=== PATIENT | male | born 1930 | race Caucasian/White ===

== ENCOUNTER 2017-09-12 13:51 | Emergency (ER) | payer OTHER ==
[~2017-09-12] VITALS: Ht 162.6 cm; Wt 54.6 kg
[2017-09-12 15:05] LABS: HEMATOCRIT 44.5 % (38.0-50.0); HEMOGLOBIN 14.8 G/DL (12.5-16.6); MCH 32.2 PG (29.0-34.0); MCHC 33.3 G/DL (30.0-36.0); MCV 96.9 FL (86-99); PLATELET COUNT 130 K/uL (156-360); RBC DIS.WIDTH-CV 14.9 % (11.8-14.6); RBC DIS.WIDTH-SD 52.8 % (39-53); RED BLOOD COUNT 4.59 M/uL (4.00-5.50); WHITE BLOOD COUNT 9.9 K/uL (4.1-10.2)
[2017-09-12 15:13] LABS: ALBUMIN 3.3 g/dL (3.2-4.8); CHLORIDE 111 mEq/L (99-109); POTASSIUM 2.9 mEq/L (3.7-5.4); SODIUM 145 mEq/L (136-147)
[2017-09-12 15:15] LABS: GLUCOSE 114 mg/dL (70-99)
[2017-09-12 15:16] LABS: TOTAL PROTEIN 6.8 g/dL (6.4-8.3)
[2017-09-12 15:17] LABS: TOTAL BILIRUBIN 0.6 mg/dL (0.0-1.0)
[2017-09-12 15:19] LABS: ALKALINE PHOSPHATASE 168 IU/L (3-129); CREATININE 1.8 mg/dL (0.6-1.3)
[2017-09-12 15:20] LABS: UREA NITROGEN (BUN) 32 mg/dL (9-23)
[2017-09-12 15:21] LABS: AST (GOT) 31 IU/L (2-34); GFR ESTIMATE (CALCULATED) 38 mL/min/ (58.99-99999)
[2017-09-12 15:22] LABS: ALT (GPT) 49 IU/L (3-49); LIPASE 16 U/L (1.0-51.0)
[2017-09-12 17:38] LABS: APPEARANCE SL.HAZY ((CLEAR)); BILIRUBIN NEGATIVE; BLOOD NEGATIVE; COLOR YELLOW ((YELLOW)); GLUCOSE (STRIP) NEGATIVE; KETONES 5; LEUKOCYTES NEGATIVE; NITRITE NEGATIVE; PROTEIN (STRIP) 100; SPECIFIC GRAVITY 1.017 (1.000-1.030); UROBILINOGEN 0.2 MG/DL (0.2-1.0)
[2017-09-12 17:45] LABS: BACTERIA NONE SEEN /HPF; EPITHELIAL CELLS RARE /HPF; MUCUS 1+ /LPF; RED BLOOD CELLS 0-5 /HPF (0-5); WHITE BLOOD CELLS 0-5 /HPF (0-5)
[2017-09-13 00:13] VITALS: BP 143/87
== END 2017-09-13 00:16 | disposition home or self-care (01) ==
LOC: EME 13:51
PROVIDERS: Family Medicine
DX: E86.0 Dehydration (principal); E87.6 Hypokalemia; D64.9 Anemia, unspecified; Z87.891 Personal history of nicotine dependence; Z96.651 Presence of right artificial knee joint; Z90.49 Acquired absence of other specified parts of digestive tract; Z88.0 Allergy status to penicillin; Z88.5 Allergy status to narcotic agent
CPT/HCPCS: 71045; 80053; 81003; 83605; 83690; 85027; 87493; 93005; 99281; 99285; J3480; J7040

== ENCOUNTER 2017-09-17 17:06 | Inpatient (IN) | payer OTHER ==
[~2017-09-17] VITALS: Ht 162.6 cm; Wt 53.0 kg
[2017-09-17] MEDS ORDERED: ZYLOPRIM100 MG PO (18:53)
[2017-09-17] MEDS ORDERED: ACIDOPHILUS LA1 EACH PO (18:53)
[2017-09-17] MEDS ORDERED: ALFUZOSIN HCL10 MG PO (18:53)
[2017-09-17] MEDS ORDERED: LIPITOR40 MG PO (18:54)
[2017-09-17] MEDS ORDERED: COREG3.125 M1 PO (18:54)
[2017-09-17] MEDS ORDERED: WELLBUTRIN XL150 MG PO (18:54)
[2017-09-17] MEDS ORDERED: PROZAC20 MG PO (18:55)
[2017-09-17] MEDS ORDERED: FLORASTOR250 MG PO (18:55)
[2017-09-17] MEDS ORDERED: MIRTAZAPINE7.5 MG PO (18:56)
[2017-09-17] MEDS ORDERED: POTASSIUM CHLO20 ME2 PO (18:57)
[2017-09-17] MEDS ORDERED: SLOW RELEASE I142 M1 PO (18:59)
[2017-09-17] MEDS ORDERED: VITAMIN D32000 UNI1 PO (19:08)
[2017-09-17] MEDS ORDERED: TYLENOL REGULA325 MG PO (19:10)
[2017-09-17] MEDS ORDERED: ZOFRAN4 MG PO (19:10)
[2017-09-17 19:24] LABS: BASOPHIL (%) 0.4 % (0-1); EOSINOPHIL (%) 1.8 % (0-5); EOSINOPHIL COUNT 0.2 K/uL (0-0.3); HEMATOCRIT 36.6 % (38.0-50.0); HEMOGLOBIN 12.4 G/DL (12.5-16.6); IMMATURE GRANULOCYTE (%) 1.1 % (0.0-0.7); LYMPHOCYTE COUNT 1.3 K/uL (1.0-2.8); MCH 32.3 PG (29.0-34.0); MCHC 33.9 G/DL (30.0-36.0); MCV 95.3 FL (86-99); MONOCYTE (%) 9.9 % (3-12); MONOCYTE COUNT 0.9 K/uL (0-0.8); NEUTROPHIL (%) 72.8 % (45-76); NEUTROPHIL COUNT 6.6 K/uL (1.8-6.4); PLATELET COUNT 134 K/uL (156-360); RBC DIS.WIDTH-CV 14.8 % (11.8-14.6); RBC DIS.WIDTH-SD 50.5 % (39-53); RED BLOOD COUNT 3.84 M/uL (4.00-5.50); WHITE BLOOD COUNT 9.1 K/uL (4.1-10.2)
[2017-09-17 19:38] LABS: CHLORIDE 106 mEq/L (99-109); POTASSIUM 2.6 mEq/L (3.7-5.4); SODIUM 139 mEq/L (136-147)
[2017-09-17 19:40] LABS: GLUCOSE 83 mg/dL (70-99)
[2017-09-17 19:44] LABS: CREATININE 1.6 mg/dL (0.6-1.3); GFR ESTIMATE (CALCULATED) 44 mL/min/ (58.99-99999)
[2017-09-17 19:45] LABS: UREA NITROGEN (BUN) 22 mg/dL (9-23)
[2017-09-18 02:54] VITALS: BP 143/7
[2017-09-18 06:13] LABS: BASOPHIL (%) 0.7 % (0-1); BASOPHIL COUNT 0.1 K/uL (0-0.1); EOSINOPHIL (%) 1.4 % (0-5); EOSINOPHIL COUNT 0.1 K/uL (0-0.3); HEMATOCRIT 36.3 % (38.0-50.0); HEMOGLOBIN 11.9 G/DL (12.5-16.6); IMMATURE GRANULOCYTE (%) 0.5 % (0.0-0.7); LYMPHOCYTE COUNT 1.2 K/uL (1.0-2.8); MCHC 32.8 G/DL (30.0-36.0); MCV 97.6 FL (86-99); MONOCYTE (%) 10.3 % (3-12); MONOCYTE COUNT 0.8 K/uL (0-0.8); NEUTROPHIL (%) 72.1 % (45-76); NEUTROPHIL COUNT 5.5 K/uL (1.8-6.4); PLATELET COUNT 131 K/uL (156-360); RBC DIS.WIDTH-SD 53.2 % (39-53); RED BLOOD COUNT 3.72 M/uL (4.00-5.50); WHITE BLOOD COUNT 7.7 K/uL (4.1-10.2)
[2017-09-18 06:38] LABS: CHLORIDE 111 MEQ/L (99-109); CREATININE 1.4 MG/DL (0.6-1.3); GFR ESTIMATE (CALCULATED) 51 mL/min/ (58.99-99999); GLUCOSE 65 mg/dL (70-99); SODIUM 141 MEQ/L (136-147); UREA NITROGEN (BUN) 18 mg/dL (9-23)
[2017-09-18 06:40] LABS: POTASSIUM 3.3 MEQ/L (3.7-5.4)
[2017-09-18 07:27] VITALS: BP 135/70
[2017-09-18 12:06] VITALS: BP 120/90
[2017-09-18 15:52] VITALS: BP 164/73
[2017-09-19 00:15] VITALS: BP 121/86
[2017-09-19 08:08] VITALS: BP 168/74
[2017-09-19 08:43] LABS: HEMATOCRIT 37.8 % (38.0-50.0); HEMOGLOBIN 12.2 G/DL (12.5-16.6); MCH 31.6 PG (29.0-34.0); MCHC 32.3 G/DL (30.0-36.0); MCV 97.9 FL (86-99); PLATELET COUNT 121 K/uL (156-360); RBC DIS.WIDTH-CV 15.3 % (11.8-14.6); RBC DIS.WIDTH-SD 53.7 % (39-53); RED BLOOD COUNT 3.86 M/uL (4.00-5.50); WHITE BLOOD COUNT 6.6 K/uL (4.1-10.2)
[2017-09-19 09:05] LABS: CHLORIDE 114 MEQ/L (99-109); CREATININE 1.1 MG/DL (0.6-1.3); GFR ESTIMATE (CALCULATED) > 59 mL/min/ (58.99-99999); GLUCOSE 72 mg/dL (70-99); POTASSIUM 3.1 MEQ/L (3.7-5.4); SODIUM 144 MEQ/L (136-147); UREA NITROGEN (BUN) 13 mg/dL (9-23)
[2017-09-19 16:18] VITALS: BP 140/82
[2017-09-19 23:46] VITALS: BP 139/80
[2017-09-20 08:51] VITALS: BP 136/71
[2017-09-20 12:15] LABS: CHLORIDE 115 MEQ/L (99-109); CREATININE 1.1 MG/DL (0.6-1.3); GFR ESTIMATE (CALCULATED) > 59 mL/min/ (58.99-99999); GLUCOSE 76 mg/dL (70-99); POTASSIUM 2.8 MEQ/L (3.7-5.4); SODIUM 144 MEQ/L (136-147); UREA NITROGEN (BUN) 10 mg/dL (9-23)
[2017-09-20 13:49] LABS: ALBUMIN 2.1 G/DL (3.2-4.8); MAGNESIUM 1.3 mg/dl (1.3-2.7)
[2017-09-20 15:59] VITALS: BP 138/74
[2017-09-20 23:59] VITALS: BP 163/79
[2017-09-21 06:12] LABS: CHLORIDE 117 MEQ/L (99-109); CREATININE 1.2 MG/DL (0.6-1.3); GFR ESTIMATE (CALCULATED) > 59 mL/min/ (58.99-99999); GLUCOSE 84 mg/dL (70-99); SODIUM 142 MEQ/L (136-147); UREA NITROGEN (BUN) 10 mg/dL (9-23)
[2017-09-21 06:18] LABS: MAGNESIUM 2.4 mg/dl (1.3-2.7); POTASSIUM 3.6 MEQ/L (3.7-5.4)
[2017-09-21 07:41] VITALS: BP 178/80
[2017-09-21 07:51] VITALS: BP 140/62
[2017-09-21 08:00] VITALS: BP 172/80
[2017-09-21 15:51] VITALS: BP 154/86
[2017-09-22 00:15] VITALS: BP 127/62
[2017-09-22 06:39] LABS: CHLORIDE 117 MEQ/L (99-109); CREATININE 1.2 MG/DL (0.6-1.3); GFR ESTIMATE (CALCULATED) > 59 mL/min/ (58.99-99999); GLUCOSE 81 mg/dL (70-99); POTASSIUM 4.1 MEQ/L (3.7-5.4); SODIUM 142 MEQ/L (136-147); UREA NITROGEN (BUN) 10 mg/dL (9-23)
[2017-09-22 09:02] VITALS: BP 144/82
[2017-09-22] MEDS ORDERED: VANCOMYCIN HCL125 MG PO (10:47)
== END 2017-09-22 13:00 | disposition home or self-care (01) | DRG 372 ==
LOC: EME 17:06 → 5SOUTH 09-18 00:46 → EDOF 09-18 00:46 → ENRESERV 09-18 00:50 → 5SOUTH 09-18 02:08
PROVIDERS: Emergency Medicine; Hospitalist; Internal Medicine
DX: A04.71 Enterocolitis due to Clostridium difficile, recurrent (principal); N17.9 Acute kidney failure, unspecified; N18.3 Chronic kidney disease, stage 3 (moderate); E44.0 Moderate protein-calorie malnutrition; I12.9 Hypertensive chronic kidney disease with stage 1 through stage 4 chronic kidney disease, or unspecified chronic kidney disease; R26.9 Unspecified abnormalities of gait and mobility; E87.6 Hypokalemia; E03.9 Hypothyroidism, unspecified; R53.1 Weakness; F41.9 Anxiety disorder, unspecified; E86.0 Dehydration; E78.00 Pure hypercholesterolemia, unspecified; F03.90 Unspecified dementia, unspecified severity, without behavioral disturbance, psychotic disturbance, mood disturbance, and anxiety; Z90.49 Acquired absence of other specified parts of digestive tract; Z96.651 Presence of right artificial knee joint; Z68.20 Body mass index [BMI] 20.0-20.9, adult; Z88.5 Allergy status to narcotic agent; Z88.2 Allergy status to sulfonamides; E83.51 Hypocalcemia; H91.90 Unspecified hearing loss, unspecified ear; Z87.891 Personal history of nicotine dependence; Z74.01 Bed confinement status
CPT/HCPCS: 70450; 80048; 82040; 83735; 85025; 85027; 87493; 99281; 99285; J1644; J3475; J3480; J7030; J7040; J7050

== ENCOUNTER 2017-10-19 17:13 | Emergency (ER) | payer OTHER ==
[~2017-10-19] VITALS: Ht 167.6 cm; Wt 58.4 kg
[~2017-10-19 17:13] MED LIST: ACIDOPHILUS LA1 EACH PO; ALFUZOSIN HCL10 MG PO; COREG3.125 M1 PO; FLORASTOR250 MG PO; LIPITOR40 MG PO; MIRTAZAPINE7.5 MG PO; POTASSIUM CHLO20 ME2 PO; PROZAC20 MG PO; SLOW RELEASE I142 M1 PO; TYLENOL REGULA325 MG PO; VANCOMYCIN HCL125 MG PO; VITAMIN D32000 UNI1 PO; WELLBUTRIN XL150 MG PO; ZOFRAN4 MG PO; ZYLOPRIM100 MG PO
[2017-10-19 20:15] VITALS: BP 125/80
== END 2017-10-19 20:56 | disposition home or self-care (01) ==
LOC: EME 17:13
DX: S00.81XA Abrasion of other part of head, initial encounter (principal); S00.31XA Abrasion of nose, initial encounter; S09.90XA Unspecified injury of head, initial encounter; S00.03XA Contusion of scalp, initial encounter; W01.0XXA Fall on same level from slipping, tripping and stumbling without subsequent striking against object, initial encounter; M47.892 Other spondylosis, cervical region; F03.90 Unspecified dementia, unspecified severity, without behavioral disturbance, psychotic disturbance, mood disturbance, and anxiety; I12.9 Hypertensive chronic kidney disease with stage 1 through stage 4 chronic kidney disease, or unspecified chronic kidney disease; N18.9 Chronic kidney disease, unspecified; E78.5 Hyperlipidemia, unspecified; Z86.73 Personal history of transient ischemic attack (TIA), and cerebral infarction without residual deficits; Z87.891 Personal history of nicotine dependence
CPT/HCPCS: 70450; 72125; 99281; 99284

== ENCOUNTER 2017-11-16 23:30 | Emergency (ER) | payer OTHER ==
[~2017-11-16] VITALS: Ht 162.6 cm; Wt 56.6 kg
[2017-11-17 02:43] VITALS: BP 126/73
== END 2017-11-17 02:51 | disposition home or self-care (01) ==
LOC: EME → EDBD 23:30 → EME 23:30
DX: S01.81XA Laceration without foreign body of other part of head, initial encounter (principal); S01.111A Laceration without foreign body of right eyelid and periocular area, initial encounter; S61.411A Laceration without foreign body of right hand, initial encounter; W06.XXXA Fall from bed, initial encounter; S50.811A Abrasion of right forearm, initial encounter; Y92.092 Bedroom in other non-institutional residence as the place of occurrence of the external cause; I12.9 Hypertensive chronic kidney disease with stage 1 through stage 4 chronic kidney disease, or unspecified chronic kidney disease; N18.9 Chronic kidney disease, unspecified; E78.5 Hyperlipidemia, unspecified; Z87.891 Personal history of nicotine dependence
CPT/HCPCS: 70450; 99281; 99285